=== PATIENT | male | born 1980 ===

== ENCOUNTER 2021-01-22 05:31 | Day surgery (SDC) | payer OTHER ==
[~2021-01-22 05:31] MED LIST: ZYRTEC10 M3 PO
[2021-01-22] MEDS ORDERED: PERCOCET 5-3251 EACH PO (08:18)
[2021-01-22] MEDS ORDERED: RECTICARE30 GM TOP (08:19)
[2021-01-22] MEDS ORDERED: FLAGYL500MG PO (08:20)
== END 2021-01-22 13:50 | disposition home or self-care (01) ==
LOC: CIR.AMB 05:31
PROVIDERS: ATTEND Surgery
DX: K60.3 Anal fistula (principal); Z20.822 Contact with and (suspected) exposure to COVID-19